=== PATIENT | female | born 2000 | race Two or more races ===

== ENCOUNTER 2020-02-18 23:37 | Emergency (ER) | payer MEDICAID, OTHER ==
[~2020-02-18] VITALS: Ht 165.1 cm; Wt 57.7 kg
[2020-02-19] MEDS ORDERED: ACETAMINOPHEN 325 MG TABLET PO ONE (02:30)
[2020-02-19 03:39] VITALS: BP 136/85
== END 2020-02-19 04:24 | disposition home or self-care (01) ==
LOC: EMS 23:37
DX: B34.9 Viral infection, unspecified (principal); J02.9 Acute pharyngitis, unspecified; R50.9 Fever, unspecified; Z20.828 Contact with and (suspected) exposure to other viral communicable diseases
CPT/HCPCS: 81025; 87430; 99283; U0003

== ENCOUNTER 2021-05-28 10:40 | Emergency (ER) | payer MEDICAID, OTHER ==
[~2021-05-28] VITALS: Ht 162.6 cm; Wt 60.9 kg
[2021-05-28] MEDS ORDERED: ACETAMINOPHEN 500 MG TABLET PO ONE (11:30)
[2021-05-28] MEDS ORDERED: IBUPROFEN 600 MG TABLET PO ONE (11:30)
[2021-05-28] MEDS ORDERED: LIDOCAINE 5% TRANSDERMAL PATCH TD ONE (11:30)
[2021-05-28 11:49] VITALS: BP 125/85
== END 2021-05-28 12:03 | disposition home or self-care (01) ==
LOC: EMS 10:44
DX: S16.1XXA Strain of muscle, fascia and tendon at neck level, initial encounter (principal); X50.9XXA Other and unspecified overexertion or strenuous movements or postures, initial encounter; Y93.89 Activity, other specified; Y92.89 Other specified places as the place of occurrence of the external cause; Y99.8 Other external cause status
CPT/HCPCS: 99284; Z7502; Z7610

== ENCOUNTER 2022-05-30 13:31 | Emergency (ER) | payer MEDICAID ==
[~2022-05-30] VITALS: Ht 165.1 cm; Wt 62.7 kg
[2022-05-30 14:08] LABS: APPEARANCE,URINE TURBID (CLEAR); BILIRUBIN,URINE NEGATIVE (NEGATIVE); GLUCOSE, URINE (UA) NEGATIVE (NEGATIVE); KETONES,URINE NEGATIVE (NEGATIVE); LEUKOCYTE ESTERASE ,URINE LARGE (NEGATIVE); NITRATE,URINE NEGATIVE (NEGATIVE); OCCULT BLOOD,URINE LARGE (NEGATIVE); PH,URINE 5.5 (5.0-8.0); PROTEIN,URINE 30-70 mg/dL (NEGATIVE); SPECIFIC GRAVITIY, URINE 1.018 (1.003-1.030); UROBILINOGEN,URINE <=1.0 mg/dL (<=1.0)
[2022-05-30 14:29] LABS: RBC,URINE >100 /HPF (0-2); WBC,URINE >100 /HPF (0-5)
[2022-05-30 14:30] LABS: BACTERIA,URINE Moderate /HPF (None Seen)
[2022-05-30] MEDS ORDERED: CEPH-558 PO (14:33)
[2022-05-30 15:04] VITALS: BP 119/65
== END 2022-05-30 15:12 | disposition home or self-care (01) ==
LOC: EMS 13:43
DX: N39.0 Urinary tract infection, site not specified (principal)
CPT/HCPCS: 81001; 87086; 99283

== ENCOUNTER 2023-01-04 23:10 | Emergency (ER) | payer OTHER ==
[~2023-01-04] VITALS: Ht 165.1 cm; Wt 61.8 kg
[~2023-01-04 23:10] MED LIST: CEPH-558 PO
[2023-01-05] MEDS ORDERED: BENZ-227 PO (00:43)
[2023-01-05 01:30] VITALS: BP 132/75
== END 2023-01-05 01:37 | disposition home or self-care (01) ==
LOC: EMS 23:12
DX: R07.89 Other chest pain (principal)
CPT/HCPCS: 71045; 99283

== ENCOUNTER 2024-10-06 17:11 | Emergency (ER) | payer OTHER ==
[~2024-10-06] VITALS: Ht 162.6 cm; Wt 61.4 kg
[~2024-10-06 17:11] MED LIST changes: +BENZ-227 PO
[2024-10-06 17:14] VITALS: BP 120/72; PULSE 86; RESP 16; TEMP 98.2; O2SAT 100
== END 2024-10-06 19:49 | disposition home or self-care (01) ==
LOC: EMS 17:11
DX: M25.572 Pain in left ankle and joints of left foot (principal)
CPT/HCPCS: 99283